=== PATIENT | male | born 1980 | race African-American/Black ===

== ENCOUNTER → 2024-10-11 11:43 | Outpatient (REF) | payer OTHER, SELFPAY | LOC: RAD 11:43 | PROVIDERS: ATTENDING PHYSICIAN Nurse Practitioner Family | DX: R05.3 Chronic cough (principal) | CPT/HCPCS: 71046 ==

== ENCOUNTER 2025-03-19 10:52 | Emergency (ER) | payer OTHER, SELFPAY ==
[2025-03-19 10:52] VITALS: BMI 51.3
[2025-03-19 10:56] VITALS: BP 161/98
[2025-03-19 11:45] VITALS: BP 151/83
--- NOTE | 2025-03-19 13:42 | ED.GENMED ---
History of Present Illness
<Karen Flanagan PA-C - Last Filed: 03/21/25 03:41>
General
Chief Complaint: Cough
Source: patient
Exam Limitations: none
Time Seen by Provider: 03/19/25 13:03
Nursing documentation reviewed up to this point in time: agreed with
History of Present Illness
History of Present Illness:
see MDM
Past History
<ELOISA Marti Last Filed: 03/21/25 03:41>
Past History
ED Past Medical History: HTN and Other (Ulcerative colitis)
ED Past Surgical History: Tonsilectomy
Social History
Tobacco: Non-smoker
Alcohol: Occasional
Drug: None
Personal:
Review of Systems
<ELOISA Marti Last Filed: 03/21/25 03:41>
Review of Systems
Allergies reviewed?: Yes
All Other Systems: Not applicable
Phy Exam
<ELOISA Marti Last Filed: 03/21/25 03:41>
Physical Exam
Physical Exam:
GENERAL: Alert , in no apparent distress
EYE: pupils equal and reactive
NECK: Supple
ENT: o/p clr, mmm.
CARDIAC: Regular rate and rhythm .
LUNGS: end exp wheezing angela R lung upper/lower, no resp distress
ABDOMEN: Soft, without focal tenderness, no r/g, no cvat, normal bowel sounds
NEUROLOGICAL: Alert and oriented, no focal neuro deficits
SKIN: Warm and dry, skin intact.
MUSCULOSKELETAL: mild symmetric ankle edema, well perfused. neg tommie's sign
PSYCH: Normal and appropriate interaction.
Course
<ELOISA Marti Last Filed: 03/21/25 03:41>
Orders/Labs/Results
Orders:
Orders
03/19/25 11:01
EKG [Electrocardiogram (*1)] Urgent
Reason for Study: Shortness of Breath
03/19/25 11:02
EKG- Treatment ONCE
03/19/25 13:26
CT Chest PE Study Urgent
Comment:
Reason For Exam: hemoptysis, wheezing, sob;
Ipratropium/Albuterol Sulfate [Duoneb] 3 ml INH R NOW STA
03/19/25 13:54
Complete Blood Count/With Diff Urgent
Comprehensive Metabolic Panel Urgent
NT-proBNP Urgent
Troponin I Urgent
03/19/25 15:08
Ipratropium/Albuterol Sulfate [Duoneb] 3 ml INH R NOW STA
03/19/25 16:30
LevoFLOXacin [Levaquin] 750 mg PO NOW STA
Abnormal Lab Results
03/19/25
13:54
Hgb 12.6 L g/dL
(13.0-18.0)
Hct 38.7 L %
(39.0-52.0)
MCV 77.7 L fL
(80.0-94.0)
MCH 25.3 L pg
(27.0-31.0)
MCHC 32.6 L g/dL
(33.0-37.0)
RDW 16.2 H %
(11.5-14.5)
Chloride 108 H mmol/L
(98-107)
Total Protein 6.2 L g/dl
(6.3-8.2)
03/19/25 13:54
03/19/25 13:54
Vital Signs
Initial and Last Documented VS:
Initial Vital Signs
Temp Pulse Resp BP Pulse Ox
36.4 C 63 22 161/98 97
03/19/25 10:56 03/19/25 10:56 03/19/25 10:56 03/19/25 10:56 03/19/25 10:56
Last Documented Vital Signs
Temp Pulse Resp BP Pulse Ox
36.4 C 63 16 161/79 97
03/19/25 17:22 03/19/25 10:56 03/19/25 17:22 03/19/25 15:16 03/19/25 17:22
<Mariella Turner NP - Last Filed: 03/19/25 16:54>
Orders/Labs/Results
Orders:
Orders
03/19/25 11:01
EKG [Electrocardiogram (*1)] Urgent
Reason for Study: Shortness of Breath
03/19/25 11:02
EKG- Treatment ONCE
03/19/25 13:26
CT Chest PE Study Urgent
Comment:
Reason For Exam: hemoptysis, wheezing, sob;
Ipratropium/Albuterol Sulfate [Duoneb] 3 ml INH R NOW STA
03/19/25 13:54
Complete Blood Count/With Diff Urgent
Comprehensive Metabolic Panel Urgent
NT-proBNP Urgent
Troponin I Urgent
03/19/25 15:08
Ipratropium/Albuterol Sulfate [Duoneb] 3 ml INH R NOW STA
03/19/25 16:30
LevoFLOXacin [Levaquin] 750 mg PO NOW STA
Abnormal Lab Results
03/19/25
13:54
Hgb 12.6 L g/dL
(13.0-18.0)
Hct 38.7 L %
(39.0-52.0)
MCV 77.7 L fL
(80.0-94.0)
MCH 25.3 L pg
(27.0-31.0)
MCHC 32.6 L g/dL
(33.0-37.0)
RDW 16.2 H %
(11.5-14.5)
Chloride 108 H mmol/L
(98-107)
Total Protein 6.2 L g/dl
(6.3-8.2)
03/19/25 13:54
03/19/25 13:54
Vital Signs
Initial and Last Documented VS:
Initial Vital Signs
Temp Pulse Resp BP Pulse Ox
36.4 C 63 22 161/98 97
03/19/25 10:56 03/19/25 10:56 03/19/25 10:56 03/19/25 10:56 03/19/25 10:56
Last Documented Vital Signs
Temp Pulse Resp BP Pulse Ox
36.4 C 63 16 161/79 97
03/19/25 17:22 03/19/25 10:56 03/19/25 17:22 03/19/25 15:16 03/19/25 17:22
<Karen Flanagan PA-C - Last Filed: 03/21/25 03:41>
MDM/Problems Addressed
Differential Diagnosis Includes:
see MDM
MDM/Problems Addressed:
Note:
CHIEF COMPLAINT(S)
Hemoptysis.
HISTORY OF PRESENT ILLNESS
The patient is a 44-year-old male with a past medical history of mild intermittent asthma and ulcerative colitis, currently reporting coughing up blood. The episode occurred last night while he was having intercourse with his ; he saysshe was
on top of him when he suddenly felt like he coudln't breathe.
he then coughed a bit and felt himself wheezing. The patient describes the hemoptysis as approximately two to three teaspoons of blood. He denies being on blood thinners. He has a known history of asthma, which is aggravated by allergies, but denies
recent illness or cold symptoms. Following the episode of exertion, he experienced dyspnea and used his inhaler, which provided relief. The patient is currently experiencing mild chest tightness but no active shortness of breath. He has been on
medication for ulcerative colitis, described as a pill, and reports being in remission without any current gastrointestinal symptoms.
ADDITIONAL HISTORY OBTAINED FROM SOURCES OTHER THAN THE PATIENT
According to the spouse, the patient was not directly involved in moving people, suggesting no significant physical strain related to that activity.
CHRONIC MEDICAL CONDITIONS SIGNIFICANTLY AFFECTING CARE
Chronic conditions affecting care include asthma and ulcerative colitis. The patient is noted to be immunocompromised due to these conditions.
SOCIAL DETERMINANTS AFFECTING HEALTH
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 He experiences minor ankle swelling, likely due to prolonged sitting.
PAST MEDICAL HISTORY
Significant for asthma and ulcerative colitis. He noted an increased heart rate and palpitations [id number] infection, but no ongoing cardiac interventions.
MEDICATIONS
The patient reports taking an unspecified oral medication for ulcerative colitis.
REVIEW OF SYSTEMS
- Respiratory: Hemoptysis, occasional dyspnea, and transient chest tightness. No recent illnesses.
- Cardiovascular: History of high blood pressure and slight heart chamber enlargement post-COVID infection.
- Gastrointestinal: Currently in remission for ulcerative colitis with no bloody stools.
- Musculoskeletal: Minor ankle swelling after prolonged sitting.
PHYSICAL EXAM
Nursing notes reviewed and vital signs reviewed.
PLAN
Order blood work. Administer nebulizer treatment. Proceed with diagnostic imaging, potentially a CT scan, to check for pneumonia or pulmonary embolism. Recommend follow-up with a tag clerk if no acute findings are revealed. Monitor and obtain
further consultation based on scan results or if hemoptysis recurs.
DIFFERENTIAL DIAGNOSIS
The Differential Diagnosis includes, in no particular order and is not limited to:
1. Pulmonary embolism
2. Bronchitis
3. Pneumonia
4. Tuberculosis
5. Lung cancer
6. Bronchiectasis
7. Foreign body aspiration
8. Pulmonary vasculitis
9. Heart failure
10. Pulmonary edema
03/19/2025 1508 PM
Patient with chest tightness and wheezing and hemoptysis during intercourse last night. Patient currently has minimal wheezing with no pain and normal pulse ox.
Will repeat the DuoNeb since he is still wheezing after first neb treatment. BNP and troponin are negative. Pending CT PE study
discussed with ED attending. If the CT PE is negative for clot or infection he can go home with outpatient pulmonary follow-up presuming he has no more episodes of hemoptysis
<Karen Flanagan PA-C - Last Filed: 03/21/25 03:41>
*Pulse Oximetry
SaO2: 98
Oxygen Mode of Delivery: Room air
<Mariella Turner NP - Last Filed: 03/19/25 16:54>
*Pulse Oximetry
Patient hypoxic: no
*Critical Care Note
Total Time (30-74mins, 75-104mins- exclusive of procedures): Not Applicable
<Mariella Turner NP - Last Filed: 03/19/25 16:54>
Update Note
Update Note:
CT report reviewed with patient. Pulmonology consulted. Will treat for RUL pneumonia. Patient requests avoidence of PCN. Placed on levaquing 750mg daily WIll discharge home tonight and will follow up outpatient with pulmonology. Given
instructions on s/s to return to ED and he is agreeable to plan. NO further episodes of hemoptysis in ED.
ED Attending Note
<Karen Flanagan PA-C - Last Filed: 03/21/25 03:41>
-
Portions of this chart may have been created with voice recognition software.� Occasional wrong word or��sound alike� substitutions may have occurred due to the inherent limitations of voice recognition software.
Discharge Plan
Departure
Patient Disposition: Home (Routine Discharge)
Date of Disposition: 03/19/25
Time of Disposition: 16:36
Patient with high blood pressure during this ER visit?: No
Condition: Good
Covid-19: Not Applicable
Discharge Problem:
Pneumonia
Instructions: Pneumonia, Adult (DC)
Prescriptions:
New
levofloxacin 750 mg tablet
750 mg PO DAILY 7 Days Qty: 7 0RF
No Action
lisinopril 20 mg tablet
20 mg PO QPM
pantoprazole 40 mg tablet,delayed release (DR/EC)
40 mg PO DAILY
albuterol sulfate 90 mcg/actuation HFA aerosol inhaler
2 puff INHALATION R Q4 PRN (Reason: sob/wheezing)
Stelara 90 mg/mL syringe
90 mg SC .[id number]
Fish Oil
3 cap PO DAILY
Patient Comments:
pt unsure of mg
hydrochlorothiazide 25 mg Tablet
25 mg PO DAILY
V.O. Custom Tincture
1 ml PO DAILY
Referrals:
Awa Ortega MD [Active, Pulmonary Medicine] - Call in 1-3 days for appt
Referral Note: Call tomorrow to schedule a follow up appointment.
Tang Sims MD [Family Provider, Internal Medicine] - Follow up in 2-3 days
Activity Restrictions/Additional Instructions:
Call the pulmonolgist in the AM to schedule your appointment. Return to the emergency department immediately for any changes in/worsening of your symptoms
Interventions
Interventions:
*Risk Screen - Suicide Last Done: 03/19/25 10:56
*General Assessment Last Done: 03/19/25 10:56
*Neglect/Abuse Screening Last Done: 03/19/25 10:56
*ED- Fall Risk Assessment Last Done: 03/19/25 10:56
*ED COVID-19 Vaccine History Last Done: 03/19/25 10:56
*Nursing Disposition Last Done: 03/19/25 17:22
ED- Pulmonary Assessment Last Done: 03/19/25 11:54
Discharge Date and Time
Discharge Date/Time: 03/19/25 17:39
Print Language: [place] LEONE[place]
[2025-03-19] MEDS: DUONEB 3 ML INH ×2 (13:55→15:13)
[2025-03-19 14:06] LABS: % Basophils 0.6 % (0-2); % Eosinophils 0.8 % (0-6); % Immature Granulocytes 0.3 % (0-0.5); % Lymphocytes 25.7 % (20.5-51.1); % Monocytes 6.9 % (1.7-9.3); % Neutrophils 65.7 % (42.2-75.2); Absolute Basophils 0.1 10^3/uL (0-0.2); Absolute Eosinophils 0.1 10^3/uL (0-0.7); Absolute Lymphocytes 2.3 10^3/uL (1.2-3.4); Absolute Monocytes 0.6 10^3/uL (0.1-0.6); Hematocrit 38.7 % (39.0-52.0); Hemoglobin 12.6 g/dL (13.0-18.0); Mean Corp Hgb Conc. 32.6 g/dL (33.0-37.0); Mean Corpuscular Hgb 25.3 pg (27.0-31.0); Mean Corpuscular Volume 77.7 fL (80.0-94.0); Mean Platelet Volume 8.8 fL (7.4-10.4); Nucleated Red Blood Cells % 0 % (-); Platelet Count 337 10^3/uL (130-400); Red Blood Cell Count 4.98 10^6/uL (4.70-6.10); Red Cell Dist. Width 16.2 % (11.5-14.5); White Blood Cell Count 9.1 10^3/uL (4.8-10.8)
[2025-03-19 14:18] VITALS: BP 162/77
[2025-03-19 14:18] LABS: ALT (SGPT) 25 U/L (0-50); AST (SGOT) 26 U/L (17-59); Albumin 3.9 g/dl (3.5-5.0); Alkaline Phosphatase 73 U/L (38-126); Blood Urea Nitrogen 15 mg/dl (9-20); Carbon Dioxide 27 mmol/L (22-30); Chloride 108 mmol/L (98-107); Estimated Creatinine Clearance > 125 ml/min; Glucose 94 mg/dl (70-99); Potassium 4.1 mmol/L (3.5-5.1); Sodium 139 mmol/L (135-145); Total Bilirubin 0.8 mg/dl (0.2-1.3); Total Protein 6.2 g/dl (6.3-8.2); eGFR > 60.00
[2025-03-19 14:29] LABS: NT-proBNP 79.7 pg/ml; Troponin I < 0.012 ng/ml
[2025-03-19 15:16] VITALS: BP 161/79
[2025-03-19] MEDS: LEVAQUIN 750 MG PO (16:56)
== END 2025-03-19 17:39 | disposition home or self-care (01) ==
LOC: EMR 10:52
PROVIDERS: Physician Assistant; EMERGENCY PHYSICIAN Emergency Medicine; FAMILY PHYSICIAN Internal Medicine Geriatric Medicine
DX: J18.9 Pneumonia, unspecified organism (principal); R04.2 Hemoptysis; M25.473 Effusion, unspecified ankle; I10 Essential (primary) hypertension; K51.90 Ulcerative colitis, unspecified, without complications; J45.20 Mild intermittent asthma, uncomplicated; Z86.16 Personal history of COVID-19
CPT/HCPCS: 99284; 94640 ×2; 71275; 80053; 83880; 84484; 85025; 93005; Q9967

== ENCOUNTER 2025-06-22 11:18 | Emergency (ER) | payer OTHER, SELFPAY ==
[2025-06-22 11:20] VITALS: BP 206/114
[2025-06-22 11:37] VITALS: BP 173/80
[2025-06-22 11:38] VITALS: BP 173/80; BMI 48.8
[2025-06-22 12:00] VITALS: BP 160/80
[2025-06-22 12:25] LABS: COVID-19 Antigen Negative (Negative)
--- NOTE | 2025-06-22 13:30 | ED.GENMED ---
History of Present Illness
General
Chief Complaint: Cold/Flu/URI Symptoms
Source: patient
Exam Limitations: none
Time Seen by Provider: 06/22/25 13:30
Nursing documentation reviewed up to this point in time: agreed with
History of Present Illness
History of Present Illness:
Note:
CHIEF COMPLAINT(S)
Cough lasting for a couple of weeks.
HISTORY OF PRESENT ILLNESS
The patient is a 44-year-old male with a history of ulcerative colitis, presenting with a cough persisting for approximately two weeks. The patient reports the cough began following what was perceived as a sinus infection that progressed downward.
He has been on a course of doxycycline for the past five days and recently completed a course of prednisone, which provided slight relief. No confirmed fever, though the patient felt warm about one and a half to two weeks ago. The cough is described
as a persistent sensation in the chest, feeling like the need to cough up phlegm, notably worse upon waking in the morning. An albuterol inhaler is used, providing minimal relief, and the patient uses a nebulizer at home, which improves symptoms
temporarily. The patient denies any smoking, though he occasionally consumes edibles. Chest examination and X-ray results indicate clear lungs, with no signs suggestive of pneumonia, leading to the consideration of viral etiology for bronchitis
symptoms.
PAST MEDICAL AND SURIGICAL HISTORY
Ulcerative colitis. The patient is on olmesartan for hypertension and questions if this may be contributing to the cough, though he has been on it long-term without previous issues.
CHRONIC MEDICAL CONDITIONS SIGNIFICANTLY AFFECTING CARE
Ulcerative colitis, hypertension, and asthma.
SOCIAL HISTORY
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 There is no smoking within the dispensary environment. The patient denies active smoking but occasionally consumes cannabis edibles.
MEDICATIONS
- Doxycycline (course ongoing)
- Olmesartan for hypertension
- Prednisone (recently completed)
- Albuterol inhaler
- Nebulizer treatments at home (as needed)
REVIEW OF SYSTEMS
- Respiratory: Persistent cough, sensation of phlegm in the chest, especially on waking.
PHYSICAL EXAM
General: Alert, no acute distress.
Skin: Warm, dry.
Head: Normocephalic, atraumatic.
Neck: Supple, trachea midline.
Eye Ears, nose, mouth, and throat: Oral mucosa moist.
Cardiovascular: Normal peripheral perfusion, no edema noted.
Respiratory: Respirations are non-labored; lung sounds clear.
Gastrointestinal: Abdomen nondistended.
Back: Normal range of motion, normal alignment.
Musculoskeletal: Normal range of motion, normal strength.
Neurological: Alert and oriented to person, place, time, and situation, no focal neurological deficit observed.
Psychiatric: Cooperative, appropriate mood & affect.
PROBLEM LIST
Acute:
- Persistent cough
- Suspected viral bronchitis
Chronic:
- Ulcerative colitis
- Hypertension
- Asthma
PLAN
- Continue current course of doxycycline.
- Initiate another round of prednisone at 50 mg daily for five days to address inflammation.
- Continue using the albuterol inhaler for on-the-go relief and the nebulizer at home as needed.
- Recommendation to follow up with a cat scanner operator; provide patient with contact information for a local specialist.
DIFFERENTIAL DIAGNOSIS
The Differential Diagnosis includes, in no particular order and is not limited to:
1. Viral bronchitis
2. Bacterial bronchitis
3. Upper respiratory tract infection
4. Asthma exacerbation
5. Medication-induced cough (secondary to olmesartan)
6. Post-nasal drip syndrome
7. Allergic rhinitis
8. Gastroesophageal reflux disease (GERD)
9. Sinusitis
10. Chronic obstructive pulmonary disease exacerbation
CARE-UPDATE
06/22/25 - 13:57
Im sorry, but the provided three dimensional map modeler is incomplete and does not provide enough information to generate any updates to the patients note. Please provide a more complete three dimensional map modeler or additional context so I can assist you accurately.
Disposition:
SUMMARY OF ENCOUNTER
The patient, a 44-year-old male with a history of asthma, presented with symptoms suggestive of either an asthma exacerbation or bronchitis. There was no respiratory distress observed. A chest x-ray was performed and interpreted, showing no
infiltrates, which ruled out pneumonia. The decision was made to discharge the patient, as he was stable and there was no suspicion of pulmonary embolism or pneumothorax. The management plan included a short course of steroids to address
inflammation.
DISPOSITION
Discharge
ASSESSMENT
Asthma exacerbation versus viral bronchitis.
PLAN
Continue doxycycline course. Initiate a short course of corticosteroids for inflammation management. Refer the patient to pulmonology for further evaluation.
INDEPENDENT REVIEW OF LABS AND INTERPRETATION OF TESTS
My independent interpretation of the chest x-ray shows no infiltrates, ruling out pneumonia.
PATIENT EDUCATION AND COUNSELING
The patient was advised on the continued use of his albuterol inhaler and nebulizer. Provided education on recognizing signs of worsening symptoms and when to seek further medical attention. Explained the purpose of the referral to pulmonology for
specialized care in managing respiratory conditions.
FOLLOW-UP INSTRUCTIONS
The patient was instructed to complete his current course of doxycycline and to contact a cat scanner operator for follow-up.
MEDICATION RECONCILIATION
The patient has an albuterol inhaler and nebulizer treatments at home, and he was provided with a prescription for a short course of corticosteroids.
MEDICAL DECISION MAKING
- Number and Complexity of Problems Addressed: Chronic conditions affecting care include ulcerative colitis, hypertension, and asthma. Differential diagnosis considered: Viral bronchitis, Asthma exacerbation.
- Data:
- Category 1: My independent interpretation of chest x-ray shows no infiltrates.
- Risk: Prescription drug management; corticosteroids prescribed for inflammation.
DIAGNOSIS
- Asthma exacerbation (ICD-10: J45.901)
- Viral bronchitis (ICD-10: J20.9)
Past History
Past History
ED Past Medical History: HTN and Other (Ulcerative colitis)
ED Past Surgical History: Tonsilectomy
Social History
Tobacco: Non-smoker
Alcohol: Occasional
Drug: None
Personal:
Phy Exam
Physical Exam
Physical Exam:
.
Course
Orders/Labs/Results
Orders:
Orders
06/22/25 11:26
Chest [CR Chest - 2 Views ] Urgent
Comment:
Reason For Exam: cough, SOB
06/22/25 11:51
COVID-19 Antigen Urgent
Source: Nasal Swab
Influenza A+B Rapid Molecular Urgent
SMITA Source: Nasal Swab
Specimen Description:
Vital Signs
Initial and Last Documented VS:
Initial Vital Signs
Temp Pulse Resp BP Pulse Ox
98.1 F 66 18 206/114 99
06/22/25 11:20 06/22/25 11:20 06/22/25 11:20 06/22/25 11:20 06/22/25 11:20
Last Documented Vital Signs
Temp Pulse Resp BP Pulse Ox
98.6 F 64 20 160/80 98
06/22/25 11:38 06/22/25 11:38 06/22/25 11:38 06/22/25 12:00 06/22/25 13:31
*Pulse Oximetry
SaO2: 98
Oxygen Mode of Delivery: Room air
Patient hypoxic: no
*Critical Care Note
Total Time (30-74mins, 75-104mins- exclusive of procedures): Not Applicable
ED Attending Note
-
Portions of this chart may have been created with voice recognition software.� Occasional wrong word or��sound alike� substitutions may have occurred due to the inherent limitations of voice recognition software.
Discharge Plan
Departure
Patient Disposition: Home (Routine Discharge)
Date of Disposition: 06/22/25
Time of Disposition: 13:53
Patient with high blood pressure during this ER visit?: Yes
Condition: Good
Discharge Problem:
Asthma exacerbation
Instructions: Asthma in adults, BLOOD PRESSURE
Prescriptions:
New
prednisone 50 mg tablet
50 mg PO DAILY Qty: 5 0RF
No Action
lisinopril 20 mg tablet
20 mg PO QPM
pantoprazole 40 mg tablet,delayed release (DR/EC)
40 mg PO DAILY
albuterol sulfate 90 mcg/actuation HFA aerosol inhaler
2 puff INHALATION R Q4 PRN (Reason: sob/wheezing)
ustekinumab [Stelara] 90 mg/mL syringe
90 mg SC .[id number]
Fish Oil
3 cap PO DAILY
Patient Comments:
pt unsure of mg
hydrochlorothiazide 25 mg Tablet
25 mg PO DAILY
V.O. Custom Tincture
1 ml PO DAILY
levofloxacin 750 mg tablet
750 mg PO DAILY 7 Days Qty: 7 0RF
Referrals:
Navarro Menendez MD [Active, Pulmonary Medicine] - Call in 1-3 days for appt
UNKNOWN - PT DOES,NOT KNOW [Family Provider]
Interventions
Interventions:
*Risk Screen - Suicide Last Done: 06/22/25 11:20
*General Assessment Last Done: 06/22/25 11:20
*Neglect/Abuse Screening Last Done: 06/22/25 11:20
*ED- Fall Risk Assessment Last Done: 06/22/25 11:38
*ED COVID-19 Vaccine History Last Done: 06/22/25 11:20
ED- Pulmonary Assessment Last Done: 06/22/25 11:38
Discharge Date and Time
Print Language: TOGOLESE
== END 2025-06-22 14:23 | disposition home or self-care (01) ==
LOC: EMR 11:18
PROVIDERS: EMERGENCY PHYSICIAN Emergency Medicine
DX: J45.901 Unspecified asthma with (acute) exacerbation (principal); J20.8 Acute bronchitis due to other specified organisms; B97.89 Other viral agents as the cause of diseases classified elsewhere; I10 Essential (primary) hypertension; Z11.52 Encounter for screening for COVID-19
CPT/HCPCS: 99284; 71046; 87502; 87811